=== PATIENT | male | born 1955 | race Caucasian/White ===

== ENCOUNTER 2020-06-21 07:02 | Day surgery (SDC) | payer OTHER ==
[~2020-06-21] VITALS: Ht 167.6 cm; Wt 81.8 kg
[~2020-06-21 07:02] MED LIST: AMLO5 PO; FENO48 PO; FISH OIL PO; LOVA40 PO; METO100ER PO; OLME20 PO
--- NOTE | 2020-06-21 08:34 | NUR ---
Ambulatory in Day Surgery History, Chart, Medications and Allergies reviewed before start of procedure.Patient confirms NPO status and agrees with scheduled surgery. Patient reports completing Chlorhexadine shower X2 prior to admission to hospital.Surgical site prepped with 2% Chlorhexidine cloth wipe. Lungs clear T/O to Auscultation. Patient States Post-Procedure ride home has been arranged.
--- NOTE | 2020-06-21 11:45 | NUR ---
Dressing to procedure site clean, dry, intact with no visible drainage, swelling, erythema or bruising noted.PT ALERT AND ORIENTED TAKING IN PO FLUIDS WELL PAIN IS NOW 6-7/10
--- NOTE | 2020-06-21 12:39 | NUR ---
Patient up to Ambulate independently. Gait steady. Discharge instructions reviewed with patient. Patient verbalizes understanding. Copy given to patient to take home. Dressing to procedure site clean, dry, intact with no visible drainage, swelling, erythema or bruising noted. Patient States Post-Procedure ride home has been arranged. Discharged via wheelchair to private car for ride home. PT GIVEN RX TO BE FILLED FOR PAIN
--- NOTE | 2020-06-21 13:46 | NUR ---
06/21/20 1346 Concepcion Bills VERIFICATIONS: EDIT CHART.
== END 2020-06-21 23:06 | disposition home or self-care (01) ==
LOC: ORSCMMR 07:02 → ORD 08:30 → ORSCMMR 23:06
PROVIDERS: Surgery
PROC: 0YU50JZ Supplement Right Inguinal Region with Synthetic Substitute, Open Approach (ICD-10-PCS; principal; 2020-06-21 09:30)
DX: K40.90 Unilateral inguinal hernia, without obstruction or gangrene, not specified as recurrent (principal); I10 Essential (primary) hypertension; E78.5 Hyperlipidemia, unspecified; K21.9 Gastro-esophageal reflux disease without esophagitis; Z79.899 Other long term (current) drug therapy
CPT/HCPCS: A9270-GY; C1781; J0330; J0690; J1100; J2250; J2370; J2405; J2704; J2710; J3010; J7120

== ENCOUNTER 2022-09-16 20:10 | Inpatient (IN) | payer MEDICARE, OTHER ==
[~2022-09-16] VITALS: Ht 167.6 cm; Wt 88.3 kg
[2022-09-16 20:45] LABS: BASOPHILS ABSOLUTE AUTO 0.04 K/mm3 (0.00-0.23); BASOPHILS PERCENT AUTO 0 % (0-2); EOSINOPHILS ABSOLUTE AUTO 0.02 K/mm3 (0.00-0.68); EOSINOPHILS PERCENT AUTO 0 % (0-6); Hematocrit 44.1 % (37.0-53.0); Hemoglobin 14.7 g/dL (13.5-17.5); IMMATURE GRAN ABSOLUTE AUTO 0.06 K/mm3 (0.00-0.10); IMMATURE GRAN PERCENT AUTO 0 % (0-1); LYMPHOCYTES ABSOLUTE AUTO 0.75 K/mm3 (0.84-5.20); LYMPHOCYTES PERCENT AUTO 5 % (21-46); MONOCYTES ABSOLUTE AUTO 0.58 K/mm3 (0.16-1.47); MONOCYTES PERCENT AUTO 4 % (4-13); Mean Corpuscular HGB 30.4 pg (26.0-34.0); Mean Corpuscular HGB Conc 33.3 g/dL (31.5-36.5); Mean Corpuscular Volume 91 fL (80-100); Mean Platelet Volume 10.9 fL (9.1-12.4); NEUTROPHILS ABSOLUTE AUTO 13.07 K/mm3 (1.96-9.15); NEUTROPHILS PERCENT AUTO 90 % (41-73); Platelet Count 230 K/mm3 (150-400); RDW Coefficient Variation 14.2 % (11.7-14.2); RDW Standard Deviation 47.8 fL (35.1-46.3); Red Blood Cell Count 4.83 M/mm3 (4.30-5.90); White Blood Cell Count 14.52 K/mm3 (4.00-11.30)
[2022-09-16 21:02] LABS: Alanine Aminotransfer (ALT/SGP 35 U/L (12-78); Albumin, Blood 4.1 g/dL (3.4-5.0); Albumin/Globulin Ratio 1.1 (0.8-1.8); Alk Phos 25 U/L (50-136); Anion Gap 9 mmol/L (6-16); Aspartate Aminotrans (AST/SGOT 34 U/L (12-37); Bilirubin, Total 0.6 mg/dL (0.1-1.0); Blood Urea Nitrogen 19 mg/dL (8-24); Bun/Creatinine Ratio 11.2 (12.0-20.0); CO2, Blood 29 mmol/L (21-32); Calcium, Blood 9.7 mg/dL (8.5-10.1); Chloride, Blood 101 mmol/L (98-108); Creatinine, Blood 1.69 mg/dL (0.60-1.20); Globulin, Blood 3.7 g/dL (2.2-4.0); Glomerular Filtration Rate 44 (60-); Glucose, Blood 170 mg/dL (70-99); Potassium, Blood 3.8 mmol/L (3.5-5.5); Sodium, Blood 139 mmol/L (136-145); Total Protein, Blood 7.8 g/dL (6.4-8.2)
[2022-09-16 21:36] LABS: Influenza A, PCR NEGATIVE (NEGATIVE); Influenza B, PCR NEGATIVE (NEGATIVE); Resp Syncytial Virus, PCR NEGATIVE (NEGATIVE); SARS-Cov-2 (COVID-19) PCR, MMC NEGATIVE (NEGATIVE)
[2022-09-16 21:55] LABS: Source, Urine Clean Catch
[2022-09-16 22:02] LABS: Bilirubin, Urine Neg (Neg); Blood, Urine Neg (Neg); Glucose Qualitative, Urine Neg (Neg); Ketones, Urine Neg (Neg); Leukocyte Esterase, Urine Neg (Neg); Nitrite, Urine Neg (Neg); Protein, Urine 2+ (Neg); Urobilinogen, Urine NORM (Normal)
[2022-09-16 22:07] LABS: Appearance, Urine Clear (Clear); Color, Urine Yellow (P-Yellow)
[2022-09-16 22:14] LABS: Bacteria Rare /hpf; Red Blood Cells, Urine 0-2 /hpf (0-2); Squamous Epithelial Cells Not Seen /hpf (Few); White Blood Cells, Urine 0-2 /hpf (0-5)
[2022-09-17 01:19] LABS: CHOL/HDL RATIO 3.8; Cholesterol 154 mg/dL (50-200); HDL Cholesterol 40 mg/dL (>39); LDL/HDL RATIO 2.1; Low Density Lipoprotein Chol 84 mg/dL (0-110); Triglycerides 152 mg/dL (30-160); Very Low Density Lipoprot Chol 30 mg/dL (6-32)
[2022-09-17] MEDS ORDERED: LISI20 PO (01:58)
[2022-09-17] MEDS ORDERED: FENOFIBRIC ACI135 MG PO (01:59)
[2022-09-17 04:22] LABS: BASOPHILS ABSOLUTE AUTO 0.02 K/mm3 (0.00-0.23); BASOPHILS PERCENT AUTO 0 % (0-2); EOSINOPHILS PERCENT AUTO 0 % (0-6); Hematocrit 42.5 % (37.0-53.0); Hemoglobin 14.1 g/dL (13.5-17.5); IMMATURE GRAN ABSOLUTE AUTO 0.03 K/mm3 (0.00-0.10); IMMATURE GRAN PERCENT AUTO 0 % (0-1); LYMPHOCYTES ABSOLUTE AUTO 0.34 K/mm3 (0.84-5.20); LYMPHOCYTES PERCENT AUTO 4 % (21-46); MONOCYTES ABSOLUTE AUTO 0.34 K/mm3 (0.16-1.47); MONOCYTES PERCENT AUTO 4 % (4-13); Mean Corpuscular HGB 30.3 pg (26.0-34.0); Mean Corpuscular HGB Conc 33.2 g/dL (31.5-36.5); Mean Corpuscular Volume 91 fL (80-100); Mean Platelet Volume 10.5 fL (9.1-12.4); NEUTROPHILS PERCENT AUTO 92 % (41-73); Platelet Count 176 K/mm3 (150-400); RDW Coefficient Variation 14.4 % (11.7-14.2); RDW Standard Deviation 48.2 fL (35.1-46.3); Red Blood Cell Count 4.66 M/mm3 (4.30-5.90); White Blood Cell Count 9.43 K/mm3 (4.00-11.30)
[2022-09-17 04:39] LABS: Bun/Creatinine Ratio 14.3 (12.0-20.0); Calcium, Blood 8.2 mg/dL (8.5-10.1); Creatinine, Blood 1.33 mg/dL (0.60-1.20); Potassium, Blood 3.9 mmol/L (3.5-5.5)
--- NOTE | 2022-09-17 06:05 | NUR ---
SHIFT SUMMARY ASSUMED CARE OF PT AT 0145. HEART SOUNDS REGULAR. LUNG SOUNDS DIMINISHED AT BASES. PT BAD IS FIRM AND TENDER. PT NEEDED PAIN MEDCATION FREQUENTLY. PT NPO. PT REMAINED IN BED AND SLEPT MOST OF THE SHIFT. PT REPORTED TO THIS NURSE THAT HIS LAST DRINK WAS 09/16/22 @ 1330. PT CIWA NEGATIVE T/O THE SHIFT BUT PT STATES HE HAS GONE THROUGH WITHDRAWL BEFORE. PT VERBALIZED UNDERSTANDING QUITING DRINKING.
--- NOTE | 2022-09-17 07:30 | NUR ---
INITIAL ASSESSMENT: Patient is awake lying down in bed. He is alert and oriented x4. He reports 8/10 abd pain at this time, pt is medicated with 50 mcg Fentanyl. HRR, SR in the 80s. LS CTA, Biox 95% on RA. BT hypoactive, pt reports some mild nausea this AM. PPP. Pt reports,"things have been going down hill since my 4 years ago." Pt states he also lost his son in january of this year. He states he is ready to stop drinking. Patient denies other needs at this time. Call light in reach.
--- NOTE | 2022-09-17 11:49 | NUR ---
Update: Patient is resting comfortably in bed. He continues to be alert and oriented. CIWA continues to be negative. He C/O 8/10 abdominal pain, medicated with 25 mcg Fentanyl. Pt was given 2 [place] earlier, he complains they upset his stomach. VSS. He denies other needs at this time. Call light in reach.
--- NOTE | 2022-09-17 15:49 | NUR ---
Update: Report given to Noe AVINA. Patient is resting comfortably. Call light in reach.
--- NOTE | 2022-09-17 16:00 | NUR ---
ASSUMPTION OF CARE HAND OFF REPORT RECEIVED FROM ANILA ORONA RN. PT WAS AWAKE AND ALERT, SITTING IN BED AT TIME OF HANDOFF. PT STATED THAT PAIN WAS MODERATELY CONTROLLED AT THAT TIME. PT DENIED ANY NEEDS AT THE TIME.
--- NOTE | 2022-09-17 17:15 | NUR ---
SHIFT SUMMARY PT HAS BEEN RESTING QUIETLY IN ROOM. PT HAS CONTINUED TO C/O 7/10 ABDOMINAL PAIN THAT IS MANAGED MODERATELY WELL WITH MEDICATIONS. PT DENIED NAUSEA SINCE THIS RN ASSUMED CARE. VITAL SIGNS STABLE, NO ACUTE CHANGE IN CONDITION.
--- NOTE | 2022-09-18 06:03 | NUR ---
SHIFT SUMMARY ASSUMED CARE OF PT AT 1900. PT IS A/OX4. HEART SOUNDS REGULAR, LUNG SOUNDS CLEAR. PT CIWA WAS NEGATIVE. PT REQUESTED PAIN MEDICATION OFTEN. PT C/O ABD PAIN THAT RADIATED TO BACK AND CHEST AT TIMES. PT C/O NOT BEING ABLE TO SLEEP AND FEELING ANXIOUS ABOUT THE PAIN. ABD IS FIRM AND TENDER TO TOUCH. BOWEL TONES HYPOACTIVE. PT IS INDEPENDENT IN THE ROOM AND HAS BEEN USING NONPHARMICOLOGICAL METHODS TO PAIN MANAGEMENT SUCH WALKING FROM RECLINER TO BED AND HEAT.
[2022-09-18 06:12] LABS: Albumin/Globulin Ratio 0.9 (0.8-1.8); Bun/Creatinine Ratio 13.5 (12.0-20.0); Calcium, Blood 7.9 mg/dL (8.5-10.1); Creatinine, Blood 1.26 mg/dL (0.60-1.20); Globulin, Blood 3.2 g/dL (2.2-4.0); Magnesium, Blood 1.4 mg/dL (1.6-2.4); Potassium, Blood 3.7 mmol/L (3.5-5.5); Total Protein, Blood 6.2 g/dL (6.4-8.2)
--- NOTE | 2022-09-18 19:01 | NUR ---
PT ARRIVED TO ICU AT 1750 CONFUSED AND MUMBLING. STATUS CHANGE TO ICU DUE TO NEEDING PRECEDEX DRIP. FRIEND AT BEDSIDE DURING TRANSFER. CIWA 26, STARTED PRECEDEX DRIP AND TITRATED TO 0.4. 4MG ATIVAN GIVEN. PT HAS HAD CONSTANT HICCUPS THROUGHOUT THE DAY. STOPEED AFTER PRECEDEX AND ATIVAN GIVEN. FAMILY HOME FOR THE NIGHT. PT'S NOK IS SON JONATHON, ALTERNATE IS GRANDDAUGHTER AGATHA. FRIEND ABBY SHORT CONTACT IS ON FACESHEET, SHE LIVES 5 MIN AWAY AND WILL COME TO BEDISIDE IF NEEDED. DISCUSSED POC WITH DR. CHACON. TELEPHONE ORDERS RECIEVED AND ENTERED.
--- NOTE | 2022-09-18 19:43 | NUR ---
1640- SPOKE W/ DR. CHACON AT BEDSIDE ABOUT CONCERNS WITH MENTATION AND WITHDRAWAL SYMPTOMS COMBINED WITH HICCUPS AND INCREASING ABDOMINAL PRESSURE. ORDERS FOR TRANSFER TO ICU FOR PRECEDEX GTT RECEIVED WELL NG TUBE AND CLOSER MONITORING. REPORT GIVEN TO FABRICE MCLAUGHLIN AND PT TRANSFERED TO ICU02
--- NOTE | 2022-09-18 19:52 | NUR ---
Author spoke to Dr. Boykin re: patient fever. 650mg Tylenol suppository ordered. Per , ok to hold off on NG insertion for now.
[2022-09-19 01:26] LABS: Source, Urine Foley catheter
[2022-09-19 01:57] LABS: Bilirubin, Urine Neg (Neg); Blood, Urine Neg (Neg); Glucose Qualitative, Urine Neg (Neg); Ketones, Urine Neg (Neg); Leukocyte Esterase, Urine Neg (Neg); Nitrite, Urine Neg (Neg); Protein, Urine 1+ (Neg); Urobilinogen, Urine NORM (Normal)
--- NOTE | 2022-09-19 02:04 | NUR ---
Shortly after 0000 assessment, author called RT to room for opinion on whether coarse wheezing coming from upper airway or lower. RT advises coarse crackles throughout and pt sounds wet. Maintenence fluids stopped. MD notified and orders given for cxr, bladder scan, casillas insertion with Zyprexa (if needed), 40mg Lasix. Bladder scan shows 741mL, urine output >700mL post-insertion and continuing to drain. Zyprexa not needed. Patient agreeable with catheter. He is beginning to get restless and wanting to "get up" even after several explanations of risk for falls with current medications. Able to get patient to rest more comfortably by increasing Precedex rate.
[2022-09-19 02:06] LABS: Appearance, Urine Clear (Clear); Color, Urine Yellow (P-Yellow)
[2022-09-19 04:02] LABS: BASOPHILS ABSOLUTE AUTO 0.03 K/mm3 (0.00-0.23); BASOPHILS PERCENT AUTO 0 % (0-2); EOSINOPHILS ABSOLUTE AUTO 0.43 K/mm3 (0.00-0.68); EOSINOPHILS PERCENT AUTO 3 % (0-6); Hematocrit 39.9 % (37.0-53.0); Hemoglobin 13.2 g/dL (13.5-17.5); IMMATURE GRAN ABSOLUTE AUTO 0.04 K/mm3 (0.00-0.10); IMMATURE GRAN PERCENT AUTO 0 % (0-1); LYMPHOCYTES ABSOLUTE AUTO 0.81 K/mm3 (0.84-5.20); LYMPHOCYTES PERCENT AUTO 6 % (21-46); MONOCYTES ABSOLUTE AUTO 0.72 K/mm3 (0.16-1.47); MONOCYTES PERCENT AUTO 6 % (4-13); Mean Corpuscular HGB 30.2 pg (26.0-34.0); Mean Corpuscular HGB Conc 33.1 g/dL (31.5-36.5); Mean Corpuscular Volume 91 fL (80-100); NEUTROPHILS ABSOLUTE AUTO 10.86 K/mm3 (1.96-9.15); NEUTROPHILS PERCENT AUTO 84 % (41-73); Platelet Count 149 K/mm3 (150-400); RDW Coefficient Variation 14.4 % (11.7-14.2); RDW Standard Deviation 48.8 fL (35.1-46.3); Red Blood Cell Count 4.37 M/mm3 (4.30-5.90); White Blood Cell Count 12.89 K/mm3 (4.00-11.30)
[2022-09-19 04:46] LABS: Albumin, Blood 2.7 g/dL (3.4-5.0); Albumin/Globulin Ratio 0.7 (0.8-1.8); Bilirubin, Total 1.1 mg/dL (0.1-1.0); Bun/Creatinine Ratio 12.5 (12.0-20.0); Calcium, Blood 8.5 mg/dL (8.5-10.1); Creatinine, Blood 1.12 mg/dL (0.60-1.20); Globulin, Blood 3.7 g/dL (2.2-4.0); Potassium, Blood 3.7 mmol/L (3.5-5.5); Total Protein, Blood 6.4 g/dL (6.4-8.2)
--- NOTE | 2022-09-19 07:03 | NUR ---
SHIFT SUMMARY: GENERAL: Patient remains in bed and in ICU for entire shift; lightly sedated on Precedex. Please see previous notes by this author for interval events. NEURO: confused, oriented to self and knows he's in the hospital. Opens eyes spontaneously and will wake briefly to stimuli. Highest CIWA was 18; generally patient has been calm and cooperative, reiterating his desire to leave or asking when he can "get out of here". He does endorse anxiety. CARDS: SR, occasional soft BPs which resolve after re-checks. No edema appreciated. RESP: *please see note* patient on 2L NC to keep sats >90%. Assumed episode of volume overload overnight; diuresed well. Breathing much better. LS coarse crackles with upper wheeze heard during overload event. LS now clear/crackles/diminished. MSK: no issues noted. Has ROM but diminished d/t sedation. INTEG: WDL GI/: Carrillo inserted with good output. Catheter patent and draining to gravity. Attempted BM x1 on bedpan; unsuccessful. He is passing gas. Mucous membranes dry.
--- NOTE | 2022-09-19 07:15 | NUR ---
ASSUMED CARE OF PT AT 0715 BEDSIDE REPORT RECIEVED FROM FABRICE FELIX. PT APPEARS TO BE RESTING COMFORTABLY ON PRECEDEX DRIP AT 0.7 INFUSING INTO RIGHT PIV. IVF STOPPED DURING THE NIGHT DUE TO SUSPECTED VOLUME OVERLOAD WITH CRACKLES IN BILAT LUNGS, LASIX REPORTEDLY GIVEN WITH GOOD EFFECT. NG IN PLACE DRAINING CLEAR YELLOW URINE. NO FAMILY AT BEDSIDE. PLAN IS TO CONTINUE PRECEDEX DRIP AND ATIVAN PRN FOR ELEVATED CIWA SCORES. RN TO CONTINUE TO MONITOR.
--- NOTE | 2022-09-19 14:56 | NUR ---
Pt transferred from PCU to ICU for precedex drip, and he appears comfortable today. Code status updated from DNR to limited, which is appropriate given pt's current situation. Plan to continue with supportive visits as needed.
--- NOTE | 2022-09-19 16:16 | NUR ---
CIWA 18 PT MORE ANXIOUS AND AWAKE AFTER BED BATH. IS ORIENTED TO PERSON AND YEAR. ABLE TO RECALL HE IS IN THE HOSPITAL AFTER BEING TOLD. STATES HE WANTS TO GO HOME AND THAT HE IS EBARASSED. REACHING FOR OBJECTS THAT ARE NOT THERE. TREMORS AND MILD DIAPHORESIS NOTED. PRECEDEX DRIP CONTINUED. 2MG ATIVAN PRN GIVEN WITH GOOD RESULT. PT SLEEPING. RN TO CONTINUE TO MONITOR.
--- NOTE | 2022-09-19 18:44 | NUR ---
SHIFT SUMMARY NEURO: INTERMITTENTLY CONFUSED. ORIENTED X PERSON ONLY AT TIMES, WHEN MORE AWAKE, ORIENTED X PERSON, PLACE AND YEAR. CIWA RANGES FROM 8-18. MEDICATED WITH ATIVAN 2MG IV X2 THIS SHIFT. PRECEDEX REMAINS AT 0.7. CARDIAC: SR, BP WNL. RESP: EXP WHEEZE INTERMITTENT, WORSE WITH ACTIVITY. O2 SAT >92% ON 2L NC. GI: NPO DUE TO SOMNOLENCE, NO NEED FOR NGT AT THIS TIME PER MD. : NG LISSETTE CLEAR 550ML OUT. SKIN: INTACT. BED BATH AND LINEN CHANGE DONE. PT TOLERATED WELL. IV: PIV LFA, POWERGLIDE LUIS CARLOS PLACED TODAY. BOTH FLUSH WELL. ABBY SALINASROSS (FRIEND) HAS BEEN UPDATED THROUGHOUT SHIFT, SHE IS UPDATING FAMILY. GOAL IS FOR PT TO REST OVER THE NEXT 1-2 DAYS DURING ACUTE WITHDRAWL WHILE ON PRECEDEX DRIP PER MD.
--- NOTE | 2022-09-19 20:53 | NUR ---
Recieved report from Nina AVINA. Pt resting in bed currently with Precedex drip infusing.
[2022-09-20 04:57] LABS: Albumin, Blood 2.3 g/dL (3.4-5.0); Albumin/Globulin Ratio 0.6 (0.8-1.8); Bun/Creatinine Ratio 17.3 (12.0-20.0); Calcium, Blood 8.1 mg/dL (8.5-10.1); Creatinine, Blood 1.1 mg/dL (0.60-1.20); Globulin, Blood 4.1 g/dL (2.2-4.0); Phosphorus, Blood 2.3 mg/dL (2.5-4.9); Potassium, Blood 3.7 mmol/L (3.5-5.5); Total Protein, Blood 6.4 g/dL (6.4-8.2)
--- NOTE | 2022-09-20 05:29 | NUR ---
Shift summary: NEURO: Pt intermittently confused. Oriented to self and occasionally place. CIWA scores ranging from 14-20s and ativan given as needed. Precedex drip still remains at 0.7mcg. CARDIAC: SR with HR 60-90s, BP WNL. RESP: Exp. wheeze on exertion. Lasix given once d/t crackles in bases. Remains on 2L NC with O2 sats maintaining >95% GI: NPO. No BM overnight. : Carrillo draining moisés colored urine. After lasix given this AM pt urinated 725ml. Other: Pt had removed RFA IV and I was unsuccessful in starting a new one. NADER powerglide still infusing and working.
--- NOTE | 2022-09-20 07:37 | NUR ---
Assumed care at 0715 Bedside report recieved, pt has been increasingly restless despite PRN Ativan and Precedex drip. Pt pulled R PIV, Powerglide to LUIS CARLOS intact and infusing. Pt oriented to person only. Moaning and restless, repositioning himself constantly and admits to discomfort. Per family, pt has a history of chronic back pain. Medicated with Morphine 2mg IV with good relief. RN to continue to monitor.
--- NOTE | 2022-09-20 17:35 | NUR ---
SHIFT SUMMARY PT HAS BEEN MEDICATED FOR PAIN X2 AND CIWA X1. PRECEDEX DRIP CONTINUES AT 0.7. MENTATION VASCILLATES BETWEEN ALERT AND ORIENTED X4 TO MUMBLED AND CONFUSED. CIWA ASSESSED PRN. SECOND POWERGLIDE PLACED TODAY, FLUSHING WELL. TEMP INCREASING, BD PROTOCOL ORDERED, PT IS RECEIVING NEBS Q4H WA. PULM HYGEINE ENCOURAGED INCLUDING COUGH, DEEP BREATHING AND FLUTTER VALVE. ICE PACKS PLACED AND PO TYLENOL ORDER RECIEVED FROM DR. CHACON. DIET ADVANCED TO CLEAR LIQUID, PT TOLERATES WATER WELL WHEN WIDE AWAKE. HOLD PO FOR SOMNOLENCE. FAMILY UPDATED BY ABBY (FRIEND) THAT HAS BEEN AT THE BEDSIDE.
--- NOTE | 2022-09-20 19:06 | NUR ---
Receieved report from Nina AVINA. Pt currently sleeping in bed with Precedex drip still infusing at 0.7mcg and TKO. Current temperature is 100.4 and continues to decrease. Will try to avoid lasix tonight and will check lipase level in AM. He is currently on RA with O2 sats >90%. Bed alarm on
[2022-09-21 05:23] LABS: BASOPHILS ABSOLUTE AUTO 0.04 K/mm3 (0.00-0.23); BASOPHILS PERCENT AUTO 0 % (0-2); EOSINOPHILS PERCENT AUTO 3 % (0-6); Hematocrit 36.3 % (37.0-53.0); Hemoglobin 12.2 g/dL (13.5-17.5); IMMATURE GRAN ABSOLUTE AUTO 0.11 K/mm3 (0.00-0.10); IMMATURE GRAN PERCENT AUTO 1 % (0-1); LYMPHOCYTES ABSOLUTE AUTO 0.72 K/mm3 (0.84-5.20); LYMPHOCYTES PERCENT AUTO 6 % (21-46); MONOCYTES ABSOLUTE AUTO 1.15 K/mm3 (0.16-1.47); MONOCYTES PERCENT AUTO 10 % (4-13); Mean Corpuscular HGB 29.8 pg (26.0-34.0); Mean Corpuscular HGB Conc 33.6 g/dL (31.5-36.5); Mean Corpuscular Volume 89 fL (80-100); Mean Platelet Volume 10.3 fL (9.1-12.4); NEUTROPHILS ABSOLUTE AUTO 9.35 K/mm3 (1.96-9.15); NEUTROPHILS PERCENT AUTO 80 % (41-73); Platelet Count 205 K/mm3 (150-400); RDW Standard Deviation 45.5 fL (35.1-46.3); Red Blood Cell Count 4.09 M/mm3 (4.30-5.90); White Blood Cell Count 11.77 K/mm3 (4.00-11.30)
--- NOTE | 2022-09-21 05:43 | NUR ---
Shift summary: NEURO: Pt intermittently confused. Oriented to self and occasionally place. CIWA scores ranging from 5-8. PRN morphine given for 8/10 back pain. Starting to decrease Precedex drip, currently at 0.6mcg. CARDIAC: SR with HR 60-90s, BP WNL. RESP: Exp. wheeze on exertion, otherwise clear/diminished. PT remains on RA GI: Pt able to have clear liquids now, had a cup of water. No BM overnight. : Carrillo draining moisés colored urine. Other: NADER and LUIS CARLOS powerglides still intact and infusing. Updated Delia this morning on patients night.
[2022-09-21 06:05] LABS: Magnesium, Blood 2.2 mg/dL (1.6-2.4)
[2022-09-21 06:16] LABS: Albumin/Globulin Ratio 0.5 (0.8-1.8); Bilirubin, Total 1.1 mg/dL (0.1-1.0); Bun/Creatinine Ratio 17.5 (12.0-20.0); Calcium, Blood 8.4 mg/dL (8.5-10.1); Creatinine, Blood 0.91 mg/dL (0.60-1.20); Globulin, Blood 4.2 g/dL (2.2-4.0); Phosphorus, Blood 2.9 mg/dL (2.5-4.9); Potassium, Blood 3.5 mmol/L (3.5-5.5); Total Protein, Blood 6.2 g/dL (6.4-8.2)
--- NOTE | 2022-09-21 07:37 | NUR ---
Assumed care at 0705 Pt resting comfortably on Precedex at 0.5. No ativan given on previous shift. Pt confused at times but mentation overall clearing. Bilat powerglide, both infusing well. Tolerating PO's well when awake. Family updated by NOC nurse via phone this am. No family currently at bedside. RN to continue to monitor.
--- NOTE | 2022-09-21 18:43 | NUR ---
END OF SHIFT SUMMARY NEURO: CONFUSED AT TIMES. CIWA 12-26. TITRATED PRECEDEX TO MAX, PRN ATIVAN AND MORPHINE GIVEN. CARDIAC: SINUS RHYTHM WITH 1ST DEGREE AV BLOCK. BP STABLE. NO EDEMA NOTED. RESP: EXP WHEEZING WITH EXERTION. RESOLVES WHEN RESTING. ON ROOM AIR WITH OXYGEN SATURATIONS > 96%. HAS BREATHING TREATMENTS ORDERED PRN. GI: CLEAR LIQUID DIET. DRANK 100% ENSURE FOR DINNER. BS NORMOACTIVE. PASSING FLATUS, NO BM THIS SHIFT. ABDOMEN LESS FIRM. : NG, UO LISSETTE AND CLEAR. 450ML OUT. SKIN: FACE RED AND FLUSHED, SKIN INTACT. TURN/ASSIST WITH REPOSITIONING EVERY 2 HOURS FOR COMFORT AND TO MAINTAIN SKIN INTEGRITY. IV: RIGHT UPPPER ARM POWEGLIDE INFUSING NS TKO AND IVPB. LEFT UPPER ARM POWERGLIDE INFUSING PRECEDEX. POTASSIUM REPLACED THIS AM, LIPASE 118, DOWN SIGNIFICANTLY FROM ADMIT. DR. CHACON WOULD LIKE TO BEGIN WEANING PT OFF PRECEDEX SATURDAY 09/22 AFTER A FULL 72 HOURS FROM WITHDRAWL SYMPTOMS STARTING. ABBY (FRIEND/CONTACT) AT BEDSIDE TO VISIT THIS SHIFT. SHE IS KEEPING FAMILY UPDATED ON PT CONDITION AND POC.
--- NOTE | 2022-09-21 20:11 | NUR ---
ASSUMED CARE OF PT AT 1900, BEDSIDE REPORT RECEIVED. PT HAS BEEN INTERMITTENTLY RESTLESS SINCE REPORT, ADMITS TO NAUSEA, ADMITS TO ANXIETY, CAN INTERMITTENTLY STATE THAT HE IS IN THE HOSPITAL HOWEVER CANNOT PROVIDE DATE OF THIS TIME. LAST CIWA ASSESSMENT, HE WAS UNABLE TO STATE THAT HE WAS IN THE HOSPITAL AND ACTUALLY ANSWERED THAT HE DOESN'T KNOW WHERE HE IS,R REORIENTATION PROVIDED WELL MEDS PER ORDERS FOR CIWA SCORE, SEE EMAR. HRR, SINUS IN THE 80-90S, 1ST DEGREE AV BLOCK, SOFT PRESSURE NOTED NEAR SHIFT CHANGE HAVE IMPROVED OF THIS TIME, WILL MONITOR. LUNGS WITH FAINT EXPIRATORY WHEEZE TO LEFT UPPER LOBE OTHERWISE CLEAR THROUGHOUT AND PT DENIES SOB/DYSPNEA, SATS HAVE BEEN MAINTAINING ON ROOM AIR. ABD DISTENDED AND FIRM, PT DENIES PAIN WITH LIGHT PALPATION AND NAUSEA IMPROVES POST ATIVAN ADMINISTRATION. WILL MONITOR.
[2022-09-22 03:48] LABS: BASOPHILS ABSOLUTE AUTO 0.05 K/mm3 (0.00-0.23); BASOPHILS PERCENT AUTO 0 % (0-2); EOSINOPHILS ABSOLUTE AUTO 0.33 K/mm3 (0.00-0.68); EOSINOPHILS PERCENT AUTO 3 % (0-6); Hematocrit 33.9 % (37.0-53.0); Hemoglobin 11.5 g/dL (13.5-17.5); IMMATURE GRAN ABSOLUTE AUTO 0.32 K/mm3 (0.00-0.10); IMMATURE GRAN PERCENT AUTO 3 % (0-1); LYMPHOCYTES ABSOLUTE AUTO 0.77 K/mm3 (0.84-5.20); LYMPHOCYTES PERCENT AUTO 7 % (21-46); MONOCYTES ABSOLUTE AUTO 1.28 K/mm3 (0.16-1.47); MONOCYTES PERCENT AUTO 11 % (4-13); Mean Corpuscular HGB 29.9 pg (26.0-34.0); Mean Corpuscular HGB Conc 33.9 g/dL (31.5-36.5); Mean Corpuscular Volume 88 fL (80-100); Mean Platelet Volume 9.7 fL (9.1-12.4); NEUTROPHILS ABSOLUTE AUTO 9.07 K/mm3 (1.96-9.15); NEUTROPHILS PERCENT AUTO 77 % (41-73); Platelet Count 244 K/mm3 (150-400); RDW Coefficient Variation 14.1 % (11.7-14.2); RDW Standard Deviation 45.6 fL (35.1-46.3); Red Blood Cell Count 3.85 M/mm3 (4.30-5.90); White Blood Cell Count 11.82 K/mm3 (4.00-11.30)
[2022-09-22 04:21] LABS: Albumin, Blood 2.2 g/dL (3.4-5.0); Albumin/Globulin Ratio 0.5 (0.8-1.8); Bilirubin, Total 1.5 mg/dL (0.1-1.0); Bun/Creatinine Ratio 17.7 (12.0-20.0); Calcium, Blood 8.5 mg/dL (8.5-10.1); Creatinine, Blood 0.96 mg/dL (0.60-1.20); Globulin, Blood 4.1 g/dL (2.2-4.0); Magnesium, Blood 2.2 mg/dL (1.6-2.4); Potassium, Blood 3.7 mmol/L (3.5-5.5); Total Protein, Blood 6.3 g/dL (6.4-8.2)
--- NOTE | 2022-09-22 04:59 | NUR ---
PT FREQUENTLY RESTLESS THROUGHOUT NOC. HAS BEEN UNABLE TO STATE DATE OR EXACT LOCATION THROUGHOUT THE DURATION OF THIS SHIFT, WAS ABLE TO STATE THAT HE WAS IN A HOSPITAL EARLY IN THE NOC HOWEVER THIS AM HE MAKES STATEMENTS SUCH "I NEED TO GET OUT OF HERE, YOU GUYS ARE FREAKING ME OUT" AND "CALL THE LEAD MATERIAL HANDLER." HE HAS DENIED HALLUCINATIONS THROUGHOUT NOC. PRECEDEX CONTINUES AT 0.7 MCG/KG/HR AND PRN DOSES OF ATIVAN HAVE BEEN ADMIN THROUGHOUT NOC, SEE EMAR. TYLENOL WAS ADMINISTERED FOR INCREASED TEMP, T-MAX 101.4 THIS SHIFT, HAS DECREASED TO 100.0 OF THIS TIME. HE CONTINUES IN SINUS RHYTHM, RATE 70S WITH SLEEP AND UP TO HIGH 90S WHEN AWAKE AND RESTLESS. PRESSURES MAINTAINING STABLE THROUGHOUT NOC, CONTINUES WITHOUT EDEMA. LUNGS WITH INTERMITTENT WHEEZES, SATS MAINTAIN MID 90S WHEN AWAKE HOWEVER NOTED TO DECREASE TO UPPER 80S WITH SLEEP AND OXYGEN VIA NASAL CANNULA WAS APPLIED AT 1 L/MIN, SATS THEN IMPROVED TO MID TO UPPER 90S WITH SLEEP, RESP RATE 20S, PT HAS DENIED DYSPNEA THROUGHOUT NOC. ABD REMAINS DISTENDED WITH HYPOACTIVE BOWEL TONES, PT DOES INTERMITTENTLY ADMIT TO SLIGHT NAUSEA AND RATES IMPROVED FOLLOWING ATIVAN ADMINISTRATIONS. TEMP PROBE NG REMAINS IN PLACE 550 ML OF CLEAR DARK YELLOW URINE EMPTIED FROM COLLECTION BAG THIS AM. WILL CONT TO MONITOR AND REPORT CHANGES TO ONCOMING SHIFT.
[2022-09-22 09:33] LABS: Source, Urine Clean Catch
[2022-09-22 09:37] LABS: Bilirubin, Urine Neg (Neg); Blood, Urine 4+ (Neg); Glucose Qualitative, Urine Neg (Neg); Ketones, Urine 1+ (Neg); Leukocyte Esterase, Urine 1+ (Neg); Nitrite, Urine Neg (Neg); Protein, Urine 2+ (Neg); Urobilinogen, Urine 3+ (Normal); pH, Urine 6.5 (5.0-8.0)
[2022-09-22 09:45] LABS: Appearance, Urine Hazy (Clear)
[2022-09-22 09:46] LABS: Bacteria Few /hpf
[2022-09-22 09:47] LABS: Color, Urine Amber (P-Yellow); Squamous Epithelial Cells Rare /hpf (Few); Transitional Epithelial Cells Rare /hpf (0-Rare)
--- NOTE | 2022-09-22 16:24 | NUR ---
Family notified of CT results. No changes to care plan at this time.
--- NOTE | 2022-09-22 17:25 | NUR ---
SHIFT SUMMARY: PT LETHARGIC, SLEEPS MOST OF SHIFT, RESPONDS TO VERBAL STIMULI, ORIENTED TO SELF, LOCATION, SITUATION, DIFFICULT TO UNDERSTAND DUE TO MUMBLED WORDS. CIWA SCORED PER PROTOCOL, NO COVERAGE PROVIDED THUS FAR THIS SHIFT. PRECEDEX INFUSION TITRATED DOWN SLOWLY, CURRENT INFUSION RATE 0.2 MCG/KG/HR. AT THIS TIME, PT IS ALERT, ANSWERING QUESTIONS APPROPRIATELY, RESTING IN HIGH FOWLERS. PT MEDICATED PER EMAR FOR ELEVATED TEMP. O2 SATS 98% ON RA. SIN RHYTHM ON MONITOR W/RATE MOSTLY 70s-80s. ABDOMEN FIRM, DISTENDED. NEW ORDER FOR UA RECEIVED, INDWELLING TEMP NG REMOVED AND NEW ONE PLACED, THEN SAMPLE COLLECTED AND SENT TO LAB. NEW ORDERS RECEIVED FOR CT AND CHEST XRAY. PT ESCORTED TO/FROM IMAGING DEPT. UPON RETURN TO ROOM, NADER NOTED TO BE RED, SWOLLEN, FIRM TO TOUCH. PG REMOVED INTACT, SWELLING AND REDNESS IMPROVES T/OUT SHIFT. PT HAS BEEN REPOSITIONED Q2H, ORAL CARE PROVIDED Q4H, BEDBATH COMPLETED. WILL CONTINUE TO MONITOR AND TREAT ACCORDINGLY UNTIL CHANGE OF SHIFT. PT ASSISTED W/DINNER TRAY. ONE EPSIODE OF COUGHING/THROAT CLEARING NOTED, OTHERWISE TOLERATES WELL.
--- NOTE | 2022-09-22 18:25 | NUR ---
UPDATE: PT BECOMES TACHYCARDIC W/HR MOSTLY 120s, PEAKS AT 140 BPM. TEMPERATURE ELEVATED. PT REPORTS FEELING ANXIOUS. CIWA SCORED AND PT MEDICATED PER EMAR. PT ASSISTED TO/FROM BEDPAN W/SMALL DARK BROWN SMEAR. PT CLEANED AND REPOSITIONED IN BED TO LEFT SIDE. HR CONTINUES TACHYCARDIC, BUT NOW 110-115 BPM. PT ALSO MEDICATED FOR TEMPERATURE. WILL CONTINUE TO MONITOR.
--- NOTE | 2022-09-22 19:30 | NUR ---
ASSUMED CARE OF PT, BEDSIDE REPORT RECEIVED. PT IS RESTING QUIETLY RECLINING IN BED VISITING WITH FRIEND AT BEDSIDE. PT IS NOW ABLE TO STATE THAT HE IS IN [facility] [place] AND THAT THE DATE IS 10/09. HE ADMITS TO SLIGHT NAUSEA, DENIES BACK PAIN AT THIS TIME. STATES THAT HE IS FEELING COLD, TEMP NOTED ELEVATED, PER OFFGOING RN, TYLENOL ADMIN AT APPROXIMATELY 1800, WILL PLACE CALL TO HOSPITALIST FACTORY HAND FOR [facility] REGARDING INCREASED TEMP AND IMAGING/LABS ORDERED TODAY WELL CURRENT PRESENTATION. RESP RATE ELEVATED TO 30S, PT DOES ADMIT TO SLIGHT INCREASED WORK OF BREATHING, SENTENCE LENGTH IS NOTED 4-5 WORDS PER MINUTE WITH VISIBLE USE OF ABD MUSCLES WITH INHALATION. UDN IN PROGRESS AT ONSET OF ASSESSMENT. WILL MONITOR. HRR, SINUS TACH NOTED ON MONITOR, RATE 120S AT THIS TIME, WILL DISCUSS WITH MD, PRESSURES MAINTAINING, PULSES FULL X 4 EXTREMITIES, CAP REFILL BRISK. ABD DISTENDED, HYPOACTIVE BOWEL TONES NOTED, NO GRIMACING TO PALPATION, CONTINUES TO BE FIRM. TEMP PROBE NG IN PLACE, CHANGED TODAY PER OFFGOING RN, DRAINING CLEAR DARK YELLOW URINE TO GRAVITY AT THIS TIME. WILL MONITOR.
--- NOTE | 2022-09-22 20:50 | NUR ---
ELEVATED TEMP PT TEMP NOTED TO CONTINUE TO INCREASE, ICE PACKS PLACED TO BILAT AXILLA AND GROIN, BEDSIDE FAN TO HIGH POWER, WILL NOTIFY .
[2022-09-22 22:38] LABS: Adenovirus Not Detected (NOT DETECT); Bordetella pertussis Not Detected (NOT DETECT); Chlamydophila pneumoniae Not Detected (NOT DETECT); Coronavirus 229E Not Detected (NOT DETECT); Coronavirus HKU1 Not Detected (NOT DETECT); Coronavirus NL63 Not Detected (NOT DETECT); Coronavirus OC43 Not Detected (NOT DETECT); Human Metapneumovirus Not Detected (NOT DETECT); Human Rhinovirus/Enterovirus Not Detected (NOT DETECT); Influenza A/2009-H1 Not Detected (NOT DETECT); Influenza A/H1 Not Detected (NOT DETECT); Influenza A/H3 Not Detected (NOT DETECT); Influenza B Not Detected (NOT DETECT); Mycoplasma pneumoniae Not Detected (NOT DETECT); Parainfluenza Virus 1 Not Detected (NOT DETECT); Parainfluenza Virus 2 Not Detected (NOT DETECT); Parainfluenza Virus 3 Not Detected (NOT DETECT); Parainfluenza Virus 4 Not Detected (NOT DETECT); Respiratory Syncytial Virus Not Detected (NOT DETECT); SARS-Cov-2 (COVID-19), BioFire Not Detected (NOT DETECT)
--- NOTE | 2022-09-22 23:27 | NUR ---
PROCALCITONIN AND RESPIRATORY PANEL RESULTS PHONED TO DR LYON, HOSPITALIST EXPERIMENTAL ROCKETSLED MECHANIC, DISCUSSED PT'S CONTINUED FEVER WELL LAST AND NEXT DOSE OF PRN TYLENOL AVAILABLE. SEE NEW ORDERS.
--- NOTE | 2022-09-23 05:13 | NUR ---
PT HAS BEEN MORE ORIENTED AND VERBAL THROUGHOUT THIS SHIFT, HE DID HAVE A FEW INTERMITTENT EPISODES OF INQUIRING TO WHERE THIS BOAT IS AND THINKING THAT HE WAS IN [place] HOWEVER THROUGHOUT THE REST OF THE NOC HE HAS BEEN ABLE TO STATE THAT HE IS IN [facility] IN [place] HOWEVER DOES NOT RETAIN THE REASON FOR ADMISSION OR EVENTS OF THIS HOSPITALIZATION. DATES PROVIDED AT ASSESSMENTS WERE 10/09 AT , AT MIDNO, AND 10/09 AT 0400. HE WAS FEBRILE WITH A TMAX OF 103.7, CALLS WERE PLACED TO HOSPITALIST AIRPLANE PATROLLER REGARDING INCREASED TEMP WELL SEPSIS SCREENING RESULTS AT , ROCEPHIN IV WAS ORDERED, LACTIC ACID WAS CHECKED AND WNL, AND TORADOL IV ONCE WAS ORDERED. PT'S FEVER DECREASED WELL FOLLOWING TORADOL ADMINISTRATION AND TYLENOL WAS ADMIN AT NEXT AVAILABLE TIME OF [facility], OF THIS TIME, PT'S TEMP IS 98.0 AND HE STATES THAT HE FEELS MUCH BETTER. CONTINUES IN SINUS RHYTHM, WAS UP TO 120S AT BEGINNING OF SHIFT, THIS HAS IMPROVED WITH TEMP CONTROL DOWN TO 60S OF THIS TIME. PRESSURES HAVE MAINTAINED STABLE THROUGHOUT NOC AND PULSES REMAIN FULL TO ALL EXTREMITIES. LUNGS WITH INTERMITTENT EXPIRATORY WHEEZES, BASES REMAIN DIMINISHED THROUGHOUT NOC, SATS MAINTAINED ON ROOM AIR, RATE HAS IMPROVED WITH TEMP CONTROL FROM 30S TO NOW IN THE UPPER TEENS. ABD REMAINS DISTENDED WITH HYPOACTIVE BOWEL TONES, FIRM TO PALPATION, PT DENIES ABD PAIN THROUGHOUT NOC BUT DOES ADMIT TO SLIGHT NAUSEA. TEMP PROBE NG REMAINS IN PLACE DRAINING CLEAR DARK LISSETTE URINE TO GRAVITY OF THIS AM, PO INTAKE VS URINE OUTPUT WAS DISCUSSED WITH DR TSAI THIS AM AND ORDER OBTAINED FOR NS AT 75 ML/HR X 1.5 LITERS. HE DOES CONTINUE TO TURN HIMSELF FULLY AND WELL AND HAS EVEN SELF PRONED INTERMITTENTLY. HE IS A HIGH FALL RISK AND BED ALARM IS ARMED. CALL LIGHT REMAINS IN REACH, WILL CONT TO MONITOR AND REPORT TO NEXT SHIFT.
--- NOTE | 2022-09-23 07:15 | NUR ---
PT IS AWAKE AND ALERT-ORIENTED TO SELF AND SURROUNDINGS. PT COOPERATIVE WITH CARE. PRECEDEX DRIP REMAINS OFF. PT DENIES ANXIETY AT THIS TIME. PT REPORTS 6/10 BILATERAL SHOULDER AND LOW BACK PAIN. ECG SHOWS SR WITH 1ST DEGREE AV BLOCK. SBP 130'S. DP/PT PULSES 2+. LUNGS DIMINISHED IN THE BASES. MILD EXERTIONAL DYSPNEA NOTED, BUT MAINTAINS SATS >90% ON RA. NO NOTED COUGH. ABDOMEN DISTENDED AND FIRM WITH HYPOACTIVE BT'S X 4. PT DENIES ABDOMINAL PAIN AT THIS TIME. PT TOLERATING SIPS OF WATER WITHOUT DIFFICULTY. NG TO BSD WITH SMALL AMOUNT OF DARK, LISSETTE URINE TO UROMETER. SKIN C/D/I. PLAN TO KEEP PRECEDEX OFF IF PT TOLERATES-INCREASE PO INTAKE AND MOBILIZE TOLERATED.
[2022-09-23 08:21] LABS: Hematocrit 35.1 % (37.0-53.0); Hemoglobin 11.3 g/dL (13.5-17.5); Mean Corpuscular HGB 29.7 pg (26.0-34.0); Mean Corpuscular HGB Conc 32.2 g/dL (31.5-36.5); Mean Corpuscular Volume 92 fL (80-100); Mean Platelet Volume 9.9 fL (9.1-12.4); Platelet Count 257 K/mm3 (150-400); RDW Coefficient Variation 14.6 % (11.7-14.2); RDW Standard Deviation 49.8 fL (35.1-46.3); Red Blood Cell Count 3.81 M/mm3 (4.30-5.90); White Blood Cell Count 11.18 K/mm3 (4.00-11.30)
[2022-09-23 08:25] LABS: Albumin, Blood 2.2 g/dL (3.4-5.0); Albumin/Globulin Ratio 0.5 (0.8-1.8); Bilirubin, Total 1.4 mg/dL (0.1-1.0); Bun/Creatinine Ratio 19.3 (12.0-20.0); Calcium, Blood 8.5 mg/dL (8.5-10.1); Creatinine, Blood 1.09 mg/dL (0.60-1.20); Globulin, Blood 4.2 g/dL (2.2-4.0); Potassium, Blood 3.7 mmol/L (3.5-5.5); Total Protein, Blood 6.4 g/dL (6.4-8.2)
--- NOTE | 2022-09-23 09:15 | NUR ---
PT GIVEN PARTIAL BATH WHILE SITTING AT THE BEDSIDE WITH PHYSICAL THERAPY-TOLERATED WELL. PT ASSISTED OOB TO CHAIR USING WALKER-MODERATE ASSIST.
[2022-09-23 09:16] LABS: BAND PERCENT MAN 3 % (0-8); BASOPHILS PERCENT MAN 0 % (0-2); EOSINOPHILS PERCENT MAN 0 % (0-6); LYMPHOCYTES ABSOLUTE MAN 0.67 K/mm3 (0.84-5.20); LYMPHOCYTES PERCENT MAN 6 % (21-46); METAMYELOCYTE ABSOLUTE MAN 0.22 K/mm3 (0.00-0.00); METAMYELOCYTE PERCENT MAN 2 % (0-0); MONOCYTES ABSOLUTE MAN 0.44 K/mm3 (0.16-1.47); MONOCYTES PERCENT MAN 4 % (4-13); NEUTROPHILS ABSOLUTE MAN 9.83 K/mm3 (1.96-9.15); SEG NEUTROPHILS PERCENT MAN 85 % (41-73); TOTAL CELLS COUNTED 100
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
--- NOTE | 2022-09-23 10:45 | NUR ---
PT ASSISTED BACK TO BED USING WALKER-MODERATE ASSIST. PT REPORTS 9/10 LOW BACK PAIN. MED WITH MORPHINE 2 MG IVP X 1. TEMP 101.1-MED WITH TYLENOL 650 MG PO X 1-SEE EMAR.POSITONED TO COMFORT ON RIGHT SIDE.
--- NOTE | 2022-09-23 11:40 | NUR ---
PT ASSISTED OOB TO CHAIR BY SHARON CHANEY. PT REFUSED LUNCH TRAY. HE HAS WATER AND GRAPE JUICE AT THE BEDSIDE AND HE STATES "I'LL JUST SIP ON THESE TWO." TEMP 100.9.
--- NOTE | 2022-09-23 15:45 | NUR ---
PT REQUESTED "MORPHINE" FOR LOW BACK PAIN, DESPITE HAVING BEEN MEDICATED WITH TORADOL. PT STATES "IT DID NOT HELP AT ALL!" PT MED WITH MORPHINE 2 MG IVP X 1 ALERT AND ORIENTED. PT CONFUSED AT TIMES, BUT RE-ORIENTS EASILY. CIWA 3. REMAINS FEBRILE. SHORTLY AFTER MORPHINE GIVEN, PT STARTED TO COUGH. HE THEN GAGGED AND VOMITED APROXIMATELY 1000 CC OF GREEN BILE. PT MED WITH ZOFRAN 4 MG IVP X 1 FOR NAUSEA. COMPLETE BED BATH AND LINEN CHANGE COMPLETED.
--- NOTE | 2022-09-23 17:46 | NUR ---
PT HAS REMAINED OFF OF THE PRECEDEX DRIP THIS SHIFT. CIWA 3. PT OCCASIONALLY CONFUSED, BUT RE-ORIENTS WITH VERBAL CUES. T MAX 101.1. PT CONTINUES TO REPORT LOW BACK PAIN AND HAS BEEN MEDICATED WITH MORPHINE-SEE EMAR. PT HAD VERY LARGE EMESIS-APROX. 1000 CC. PRIOR TO THAT, PT WAS TOLERATING SIPS OF CLEAR LIQUIDS WITHOUT DIFFICULTY. PT DENIES NAUSEA. NG WITH 500 CC DARK, LISSETTE URINE OUTPUT THIS SHIFT.
--- NOTE | 2022-09-23 18:25 | NUR ---
PT ON HIS HANDS AND KNEES IN THE BED. PT VERY CONFUSED, AGITATED, AND HALLUCINATING. CIWA 26-MED WITH ATIVAN 2 MG IVP AND POSITIONED TO COMFORT ON LEFT SIDE.
--- NOTE | 2022-09-23 18:43 | NUR ---
CIWA 10-PT REPORTS 9/10 LOW BACK PAIN. MED WITH ATIVAN 2 MG IVP X 1 AND MORPHINE 2 MG IVP X 1-SEE EMAR.
--- NOTE | 2022-09-23 20:35 | NUR ---
ASSUMED CARE AT 1900 PATIENT ALERT AND ORIENTED X4, HOWEVER VERY FORGETFUL AND SEEING BUGS ON THE CEILING, CIWA OF 9. PATIENT HAVING SOME NAUSEA, MEDICATED PER EMAR. 02 SATS >93% ON RA. HR SR 80-90s. BP STABLE, PATIENT DENIES CP/PRESSURE. NG PATENT AND DRAINING TO GRAVITY. PATIENT PULLED OUT IV AT START OF SHIFT, LINEN CHANGED DONE AND PATIENT REPOSITIONED. CALL LIGHT IN REACH AND PATIENT ON CAMERA.
--- NOTE | 2022-09-24 00:04 | NUR ---
PATIENT CONFUSED, CIWA >15, CLIMBING OUT OF BED CONSISTENTLY, THINKS HE IS HOME, AND IS HALLUCINATING. MEDICATED WITH ATIVAN SEVERAL TIMES, STARTED ON PO LIBRIUM. PATIENT ALSO HAS HICCUPS, MEDICATED PER DR ORDER, SEE EMAR. PATIENT REMAINS ON CAMERA
--- NOTE | 2022-09-24 00:40 | NUR ---
PATIENT CONTINUES TO BE CONFUSED AND AGITATED CALLED DR AND PRECEDEX RESTARTED AND PATIENT NOW ICU STATUS
--- NOTE | 2022-09-24 05:42 | NUR ---
SHIFT SUMMARY PATIENT IS SEDATED ON PRECEDEX AFTER TRYING ATIVAN AND LIBRIUM. ALSO MEDICATED FOR BACK PAIN WITH MORPHINE. PATIENT REMAINED AGITATED AND PULLING AT THINGS, CLIMBING OUT OF BED AND BECAME INCREASINGLY CONFUSED. ON PRECEDEX PATIENT IS CALM AND COOPERATIVE. 02 SATS 97% ON 2L VIA NC WHILE SLEEPING AND RA WHILE AWAKE. HR SR 70s, BP STABLE. TEMP NG PATENT AND DRAINING LISSETTE URINE. TMAX 102.4, MEDICATED WITH TYLENOL AND ONCE PATIENT SETTLED DOWN TEMP NOW 99.0. PATIENT ABLE TO TOLERATE PO LIQUIDS AND MEDICATION. PATIENT REPOSITIONED SELF THROUGH THE NIGHT. REMAINS ON CAMERA, CALL LIGHT IN REACH.
[2022-09-24 06:58] LABS: BASOPHILS ABSOLUTE AUTO 0.04 K/mm3 (0.00-0.23); BASOPHILS PERCENT AUTO 0 % (0-2); EOSINOPHILS ABSOLUTE AUTO 0.41 K/mm3 (0.00-0.68); EOSINOPHILS PERCENT AUTO 3 % (0-6); Hemoglobin 10.4 g/dL (13.5-17.5); IMMATURE GRAN ABSOLUTE AUTO 0.39 K/mm3 (0.00-0.10); IMMATURE GRAN PERCENT AUTO 3 % (0-1); LYMPHOCYTES PERCENT AUTO 7 % (21-46); MONOCYTES ABSOLUTE AUTO 1.28 K/mm3 (0.16-1.47); MONOCYTES PERCENT AUTO 10 % (4-13); Mean Corpuscular HGB 29.7 pg (26.0-34.0); Mean Corpuscular HGB Conc 32.5 g/dL (31.5-36.5); Mean Corpuscular Volume 91 fL (80-100); Mean Platelet Volume 9.7 fL (9.1-12.4); NEUTROPHILS ABSOLUTE AUTO 9.72 K/mm3 (1.96-9.15); NEUTROPHILS PERCENT AUTO 76 % (41-73); Platelet Count 278 K/mm3 (150-400); RDW Coefficient Variation 14.8 % (11.7-14.2); RDW Standard Deviation 49.8 fL (35.1-46.3); White Blood Cell Count 12.74 K/mm3 (4.00-11.30)
[2022-09-24 07:28] LABS: Bun/Creatinine Ratio 15.7 (12.0-20.0); Calcium, Blood 8.2 mg/dL (8.5-10.1); Creatinine, Blood 1.02 mg/dL (0.60-1.20); Potassium, Blood 3.7 mmol/L (3.5-5.5)
--- NOTE | 2022-09-24 07:30 | NUR ---
ASSUMED CARE PT IS CONFUSED AND UNAWARE OF HIS SURROUNDINGS (ABLE TO ANSWER QUESTIONS APPROPRIATELY INTERMITTENTLY. PT MUMBLING INCOHERENTLY AND TOSSING/TURNING IN BED. NO RESTRAINTS AT THIS TIME OFFGOING NURSE STATED IT WOULD EXTREMELY AGITATE THE PT. PT HAS NOT BEEN ATTEMPTING TO PULL WIRES, ETC., JUST MOVING. SPO2 >92% ON 3LNC; MAP >65. PT HAS NO C/O OF ABDOMINAL TENDERNESS.
--- NOTE | 2022-09-24 10:59 | NUR ---
UPDATE CIWA 21, PRECEDEX AT 1.4. ATTEMPTED TO GIVE PT SOME ORAL CARE AND PT BECAME VERY AGITATED.
--- NOTE | 2022-09-24 11:01 | NUR ---
UPDATE DR LUIS UPDATED W/ CONCERNS THAT ABBY (PALLIATIVE CARE) HAD. DR LUIS STATED THAT HE IS HAVING GI SEE HIM AND THAT HE CHANGED ABX.
--- NOTE | 2022-09-24 12:47 | NUR ---
UPDATE WHEN RT ATTEMPTED TO GIVE PT BREATHING TREATMENT, PT BECAME VERY AGITATED AND ALMOST GOT OUT OF BED. WAS ABLE TO MOVE PT TO CHAIR, GIVE BATH, AND MOVE BACK TO BED W/ NO DIFFICULTY.
--- NOTE | 2022-09-24 17:36 | NUR ---
SHIFT SUMMARY PT IS CONFUSED AND ON 0.7MCG OF PRECEDEX. SPO2 >92% ON 2L NC; MAP >65. PT HAD SEVERAL EPISODES OF AGITATION WHERE HE TRIED TO CLIMB OUT OF BED AND WAS TALKING TO PEOPLE WHO WEREN'T THERE. FOR THE LAST FEW HOURS OF THE SHIFT HIS TEMP HAS BEEN CLIMBING W/ T-MAX AT 101.0. ALSO DURING THE LAST FEW HOURS OF THIS SHIFT, PT'S WORK OF BREATHING INVOLVED ACCESSORY MUSCLES AND WORSENING WHEEZES, BUT HAS SINCE RESOLVED. PT IS STILL TACHYPNEIC, BUT THE WHEEZES HAVE STOPPED AND HIS WOB HAS IMPROVED. NO ABDOMINAL PAIN NOTED TIL TIME OF THIS NOTE, WHERE PT STATED HE HAD MILD PAIN. PAIN MANAGEMENT HAS BEEN FOR HIS BACK.
--- NOTE | 2022-09-24 19:38 | NUR ---
ASSUMED CARE AT 1900 PATIENT IS SEDATED ON PRECEDEX, RESPONDS TO VERBAL STIMULI AND ORIENTED X4, FORGETFUL AND WITH CONFUSION AT TIMES. 02 SATS 97% ON 2L VIA NC, RR 21. LS DIMINISHED, PATIENT DENIES SOB AT THIS TIME. HR ST 70s, BP STABLE, PATIENT DENIES CP PRESSURE, PULSES STRONG. TEMP NG PATENT AND DRAINING TO GRAVITY, TEMP OF 101.4, DAYSHIFT RN GAVE TYLENOL APPROX. 1 HOUR AGO. PATIENT UP IN CHAIR. RIGHT PERIPHERAL IV REMOVED DUE TO SOME SWELLING AND COMPLAINTS OF PAIN WHEN FLUSHED. CALL LIGHT IN REACH AND TAB ALARM ON. SEE SHIFT ASSESSMENT FOR MORE INFORMATION.
--- NOTE | 2022-09-24 22:47 | NUR ---
PATIENT ASKING FOR HIS GLASSES, LOOKED THROUGH ROOM AND UNABLE TO FIND THEM.
--- NOTE | 2022-09-25 05:39 | NUR ---
SHIFT SUMMARY PATIENT REMAINS ON PRECEDEX, TITRATING DOWN THIS AM. PATIENT ABLE TO STATE WHERE HE IS, THE DATE, SELF AND CITY. MORE EASILY REDIRECTABLE BUT HAVING MOMENTS OF CONFUSION STILL. 02 SATS >93% ON RA. LS DIMINISHED, NO EPISODES OF TACHYPNEA OR WHEEZING THIS SHIFT. HR SR-SB 50-70s. BP LABILE THIS AM. NG PATENT AND DRAINING TO GRAVITY, 2200 OUT THIS SHIFT. TEMP NOW 99.0. MEDICATED PRN FOR BACK PAIN. PATIENT UP IN CHAIR FOR HALF THE SHIFT. TOLERATING CLEAR LIQUIDS. CALL LIGHT IN REACH.
[2022-09-25 06:31] LABS: BASOPHILS ABSOLUTE AUTO 0.04 K/mm3 (0.00-0.23); BASOPHILS PERCENT AUTO 0 % (0-2); EOSINOPHILS ABSOLUTE AUTO 0.43 K/mm3 (0.00-0.68); EOSINOPHILS PERCENT AUTO 3 % (0-6); Hematocrit 34.3 % (37.0-53.0); Hemoglobin 11.5 g/dL (13.5-17.5); IMMATURE GRAN ABSOLUTE AUTO 0.37 K/mm3 (0.00-0.10); IMMATURE GRAN PERCENT AUTO 2 % (0-1); LYMPHOCYTES ABSOLUTE AUTO 0.95 K/mm3 (0.84-5.20); LYMPHOCYTES PERCENT AUTO 6 % (21-46); MONOCYTES ABSOLUTE AUTO 1.14 K/mm3 (0.16-1.47); MONOCYTES PERCENT AUTO 7 % (4-13); Mean Corpuscular HGB 30.3 pg (26.0-34.0); Mean Corpuscular HGB Conc 33.5 g/dL (31.5-36.5); Mean Corpuscular Volume 90 fL (80-100); Mean Platelet Volume 9.6 fL (9.1-12.4); NEUTROPHILS ABSOLUTE AUTO 12.48 K/mm3 (1.96-9.15); NEUTROPHILS PERCENT AUTO 81 % (41-73); Platelet Count 280 K/mm3 (150-400); RDW Coefficient Variation 14.8 % (11.7-14.2); RDW Standard Deviation 49.2 fL (35.1-46.3); White Blood Cell Count 15.41 K/mm3 (4.00-11.30)
[2022-09-25 06:36] LABS: Albumin, Blood 2.3 g/dL (3.4-5.0); Albumin/Globulin Ratio 0.5 (0.8-1.8); Bun/Creatinine Ratio 14.3 (12.0-20.0); Calcium, Blood 8.7 mg/dL (8.5-10.1); Creatinine, Blood 0.98 mg/dL (0.60-1.20); Globulin, Blood 4.2 g/dL (2.2-4.0); Potassium, Blood 3.4 mmol/L (3.5-5.5); Total Protein, Blood 6.5 g/dL (6.4-8.2)
--- NOTE | 2022-09-25 07:15 | NUR ---
Assumed care of pt at 0700. Report received from Yolanda AVINA. Pt A&O x 4. Answers questions, follows commands, verbalizes needs. Pleasant and cooperative with care. SpO2 90% or greater with RA. Precedex 0.3 mcg/kg/hr.
--- NOTE | 2022-09-25 07:45 | NUR ---
Dr Murphy at bedside. Provider recommends stopping precedex. Precedex stopped.
--- NOTE | 2022-09-25 13:26 | NUR ---
Call placed to Dr Murphy to notify provider that pt has been continuously febrile despite administering tylenol. Discussed that last blood cx were drawn less than 24 hours ago, provider stated to increase frequency of PO tylenol.
--- NOTE | 2022-09-25 18:15 | NUR ---
SUMMARY Patient is now PCU status. Pt A&O x 4. Answers questions, follows commands, verbalizes needs. Pleasant and cooperative with care. Patient has been compliant with fall risk precautions, utilizing call light appropriately and not attempting to mobilize or ambulate without assistance. Pt was able to work with PT/OT, pt also additionally ambulated to and from shower today, tolerating activity well. SpO2 90% or greater RA. Pt has had fever that has been difficult to break. Several doses of tylenol given. Pt has requested librium for management of anxiety; this seems to work well in combination with therapeutic communication.
--- NOTE | 2022-09-25 21:34 | NUR ---
ASSUMED CARE AT 1900 PATIENT IS ALERT AND ORIENTED X4, ANXIOUS AT TIMES. 02 SATS 97% ON RA. HR SR 80-90s, BP STABLE. DENIES CP/PRESSURE. NG PATENT AND DRAINING TO GRAVITY. UP IN CHAIR. MEDICATED FOR PAIN AND TEMP OF 101.0. CALL LIGHT IN REACH SEE SHIFT ASSESSMENT FOR MORE INFORMATION.
--- NOTE | 2022-09-26 05:03 | NUR ---
SHIFT SUMMARY PATIENT REMAINS ALERT AND ORIENTED X4. ANXIOUS AT TIMES. 02 SATS >93% ON RA. HR SR 80s. BP STABLE. NG DRAINING LISSETTE URINE. TMAX 101.0, MEDICATED WITH TYLENOL. MILD ABD TENDERNESS. MEDICATED FOR BACK PAIN. THORAZINE ORDERED FOR HICCUPS THAT PATIENT HAS HAD THE ENTIRE SHIFT. PATIENT IN CHAIR AT START OF SHIFT THEN MOVED TO BED TO SEE IF BACK PAIN IMPROVED, MOVED BACK TO CHAIR THIS AM AND HAS NOT SLEPT TONIGHT. CALL LIGHT IN REACH.
[2022-09-26 06:04] LABS: BASOPHILS ABSOLUTE AUTO 0.05 K/mm3 (0.00-0.23); BASOPHILS PERCENT AUTO 0 % (0-2); EOSINOPHILS ABSOLUTE AUTO 0.28 K/mm3 (0.00-0.68); EOSINOPHILS PERCENT AUTO 2 % (0-6); Hematocrit 33.5 % (37.0-53.0); Hemoglobin 11.4 g/dL (13.5-17.5); IMMATURE GRAN PERCENT AUTO 3 % (0-1); LYMPHOCYTES ABSOLUTE AUTO 1.04 K/mm3 (0.84-5.20); LYMPHOCYTES PERCENT AUTO 7 % (21-46); MONOCYTES ABSOLUTE AUTO 1.15 K/mm3 (0.16-1.47); MONOCYTES PERCENT AUTO 7 % (4-13); Mean Corpuscular HGB 29.8 pg (26.0-34.0); Mean Corpuscular Volume 88 fL (80-100); Mean Platelet Volume 9.5 fL (9.1-12.4); NEUTROPHILS ABSOLUTE AUTO 12.87 K/mm3 (1.96-9.15); NEUTROPHILS PERCENT AUTO 82 % (41-73); Platelet Count 341 K/mm3 (150-400); RDW Coefficient Variation 14.6 % (11.7-14.2); RDW Standard Deviation 47.4 fL (35.1-46.3); Red Blood Cell Count 3.82 M/mm3 (4.30-5.90); White Blood Cell Count 15.79 K/mm3 (4.00-11.30)
[2022-09-26 06:18] LABS: Bun/Creatinine Ratio 13.2 (12.0-20.0); Calcium, Blood 8.7 mg/dL (8.5-10.1); Creatinine, Blood 0.84 mg/dL (0.60-1.20); Potassium, Blood 3.4 mmol/L (3.5-5.5)
--- NOTE | 2022-09-26 07:32 | NUR ---
Assumed care of pt at 0715 Pt resting in bed, has ongoing hiccups, is AAOx4. Did not sleep last night and is requesting "any drugs" to make him sleep. SR, BP WNL, RA, tolerating PO clear liquids, casillas draining moisés urine, skin intact, PIV SL. Potassium is 3.4, PO replacement ordered. RN to continue to follow.
[2022-09-26 18:04] LABS: Bun/Creatinine Ratio 11.6 (12.0-20.0); Calcium, Blood 9.2 mg/dL (8.5-10.1); Creatinine, Blood 0.77 mg/dL (0.60-1.20); Magnesium, Blood 2.1 mg/dL (1.6-2.4); Phosphorus, Blood 2.7 mg/dL (2.5-4.9); Potassium, Blood 3.6 mmol/L (3.5-5.5)
--- NOTE | 2022-09-26 18:39 | NUR ---
END OF SHIFT SUMMARY PT HAD STATUS CHANGE THIS AM TO MEDICAL WITH TELE. NEURO: A/OX4, CALLS APPROPRIATELY FOR HELP. CARDIAC: SINUS RHYTHM TO SINUS TACH, BIPHASIC TWAVES NOTED AT 1400 RHYTHM CHECK, MD NOTIFIED, STAT BMP, MAG, PHOS ORDERED. K 3.6. NOTIFIED. NO NEW ORDERS AT THIS TIME. RESP: ROOM AIR, O2 SAT >95%. LUNGS WITH EXPIRATORY RHONCHI. OCCAS NON-PRODUCTIVE COUGH. ENCOURAGED PULMONARY HYGEINE. GI: ADVANCED DIET TO LOW FAT. PT ATE 50% DINNER, TOLERATED WELL. HAS HAD HICCUPS INTERMITTENTLY. TREATING WITH THORAZINE THIS SHIFT X2 WITH SOME RELIEF. ALSO ATTEMPTED VALSALVA WHICH SEEMED TO STOP HICCUPS FOR ABOUT 4O MIN. NO NAUSEA OR VOMITING. BS HYPOACTIVE. ABD SLIGHTLY TENDER. : NG TO GRAVITY DRAINING CLEAR YELLOW URINE. ORDER TO D/C NG RECIEVED. PT STILL UP IN CHAIR, WILL ENDORSE TO NOC SHIFT. NURSE NOTIFY ORDER PLACED. 1100ML OUT. SKIN: INTACT WITH MILD RASH TO BACK. PER PT/FAMILY, PT IS SENSITIVE TO SOAPS. CREAM APPLIED, MONITOR. TMAX 100.8. TYLENOL PO GIVEN WITH GOOD EFFECT. WALKED 100 FT WITH PT ASSIST. OT WORKED WITH PT WELL. IMPROVING WITH ADL'S, STILL UNSTEADY ON HIS FEET AND IMPULSIVE AT TIMES. WILL BENEFIT FROM CONTINUED PT/OT. PLAN FOR D/C TO SNF DELAYED DUE TO ACCEPTING FACILITY HOLDING ADMITS R/T FLU OUTBREAK. CARE MANAGEMENT WORKING WITH LOCAL SNF ([facility]) ON POTENTIAL ADMIT TOMORROW 09/26. FACILITY HAS NOT ACCEPTED AT THIS TIME. DISCUSSED WITH FAMILY, BACKUP PLAN FOR HOME WITH HOME HEALTH VS. OUTPT PT/OT AND FAMILY SUPPORT IF SNF NOT AN OPTION. IF SNF ACCEPTS PT TOMORROW, WILL NEED COVID TEST IN AM.
--- NOTE | 2022-09-26 20:03 | NUR ---
TOOK OVER CARE OF PT AT 1905. PT RESTING ON RA.
--- NOTE | 2022-09-27 02:52 | NUR ---
SHIFT SUMMARY NEURO: A/O X4, PT HAS SOME GENERALIZED WEAKNESS LUNGS: WNL CARDIAC: POTASSIUM REPLACED. TACHY TO 150'S WHILE STANDING TO URINATE. GI: WNL : NG REMOVED AROUND 199909/26/22. PT HAS VOIDED TWICE SINCE
[2022-09-27 05:40] LABS: BASOPHILS ABSOLUTE AUTO 0.04 K/mm3 (0.00-0.23); BASOPHILS PERCENT AUTO 0 % (0-2); EOSINOPHILS ABSOLUTE AUTO 0.34 K/mm3 (0.00-0.68); EOSINOPHILS PERCENT AUTO 3 % (0-6); Hemoglobin 10.8 g/dL (13.5-17.5); IMMATURE GRAN ABSOLUTE AUTO 0.29 K/mm3 (0.00-0.10); IMMATURE GRAN PERCENT AUTO 2 % (0-1); LYMPHOCYTES ABSOLUTE AUTO 0.92 K/mm3 (0.84-5.20); LYMPHOCYTES PERCENT AUTO 7 % (21-46); MONOCYTES ABSOLUTE AUTO 0.76 K/mm3 (0.16-1.47); MONOCYTES PERCENT AUTO 6 % (4-13); Mean Corpuscular HGB 30.1 pg (26.0-34.0); Mean Corpuscular HGB Conc 33.8 g/dL (31.5-36.5); Mean Corpuscular Volume 89 fL (80-100); Mean Platelet Volume 9.4 fL (9.1-12.4); NEUTROPHILS ABSOLUTE AUTO 10.64 K/mm3 (1.96-9.15); NEUTROPHILS PERCENT AUTO 82 % (41-73); Platelet Count 345 K/mm3 (150-400); RDW Coefficient Variation 14.6 % (11.7-14.2); Red Blood Cell Count 3.59 M/mm3 (4.30-5.90); White Blood Cell Count 12.99 K/mm3 (4.00-11.30)
[2022-09-27 05:59] LABS: Albumin, Blood 2.5 g/dL (3.4-5.0); Albumin/Globulin Ratio 0.6 (0.8-1.8); Bilirubin, Total 0.9 mg/dL (0.1-1.0); Bun/Creatinine Ratio 10.8 (12.0-20.0); Calcium, Blood 8.8 mg/dL (8.5-10.1); Creatinine, Blood 0.83 mg/dL (0.60-1.20); Potassium, Blood 3.6 mmol/L (3.5-5.5); Total Protein, Blood 6.5 g/dL (6.4-8.2)
[2022-09-27] MEDS ORDERED: LISI20 PO (12:19)
[2022-09-27] MEDS ORDERED: HYDR1TAB94 PO (12:21)
[2022-09-27] MEDS ORDERED: PANT20 PO (12:22)
[2022-09-27] MEDS ORDERED: B-1100 M1 PO (12:22)
[2022-09-27] MEDS ORDERED: CEFP200 PO (12:23)
[2022-09-27] MEDS ORDERED: FOLI1 PO (12:24)
[2022-09-27 12:28] LABS: Influenza A, PCR NEGATIVE (NEGATIVE); Influenza B, PCR NEGATIVE (NEGATIVE); Resp Syncytial Virus, PCR NEGATIVE (NEGATIVE); SARS-Cov-2 (COVID-19) PCR, MMC NEGATIVE (NEGATIVE)
--- NOTE | 2022-09-27 14:54 | NUR ---
Pt d/c to SNF at 1350 Pt accepted to [facility] for PT/OT rehab. Report called to Zofia at 1215, all questions answered. CM notified of facility d/c. charge nurse (Delia) to transport to SNF, ok per facility. Pt is a/o x4, sinus tach 98-110, increased hr with activity. SBP 185 this am, increased dose of Lisinopril ordered by MD. On room air with O2 sat 99%. Eating well, no BM x5 days although pt just started with solid diet yesterday afternoon. Skin intact, rash on back due to sensitivity to soaps per pt and family. Powerglide D/C'd, catheter intact, pt tolerated well. D/C packet sent with pt including written Rx for pain medication and all d/c instructions and med orders. RN Name and ICU phone number provided to facility, encouraged to call with any questions.
== END 2022-09-27 13:40 | DRG 439 ==
LOC: ER 20:10 → ERHOLD 09-17 01:04 → PCU 09-17 01:04 → ICUE 09-17 01:04 → PCU 09-17 01:46 → ICUE 09-18 17:51
PROVIDERS: Emergency Medicine; Family Medicine; Internal Medicine; Student in an Organized Health Care Education/Training Program; ADMIT Family Medicine
DX: K85.20 Alcohol induced acute pancreatitis without necrosis or infection (principal); F10.239 Alcohol dependence with withdrawal, unspecified; N17.9 Acute kidney failure, unspecified; N39.0 Urinary tract infection, site not specified; E78.5 Hyperlipidemia, unspecified; I12.9 Hypertensive chronic kidney disease with stage 1 through stage 4 chronic kidney disease, or unspecified chronic kidney disease; K29.80 Duodenitis without bleeding; R06.6 Hiccough; F41.9 Anxiety disorder, unspecified; Z66 Do not resuscitate; E66.9 Obesity, unspecified; K64.9 Unspecified hemorrhoids; N43.3 Hydrocele, unspecified; E87.70 Fluid overload, unspecified; G47.00 Insomnia, unspecified; F12.10 Cannabis abuse, uncomplicated; N52.9 Male erectile dysfunction, unspecified; N18.30 Chronic kidney disease, stage 3 unspecified; Z20.822 Contact with and (suspected) exposure to COVID-19; Z68.29 Body mass index [BMI] 29.0-29.9, adult; Z88.0 Allergy status to penicillin; Z98.890 Other specified postprocedural states; Z85.46 Personal history of malignant neoplasm of prostate; Z88.8 Allergy status to other drugs, medicaments and biological substances; Z79.899 Other long term (current) drug therapy; Z79.811 Long term (current) use of aromatase inhibitors; Z71.41 Alcohol abuse counseling and surveillance of alcoholic
CPT/HCPCS: 0202U; 0241U; 36415; 51702; 71045; 71046; 74177; 80048; 80053; 80061; 81001; 83605; 83690; 83735; 84100; 84145; 84484; 85025; 87040; 87086; 93005; 93010; 94640; 94664; 94760; 94762; 96361; 96374-59; 96375; 96376; 97110; 97112; 97116; 97162; 97166; 97530; 97535; 99285-25; A9270; C1751; C9113; J0692; J0696; J1170; J1650; J1885; J1940; J2060; J2270; J2405; J2550; J3010; J3411; J3475; J3480; J7030; J7050; J7060; J7120; Q9967

== ENCOUNTER → 2024-04-17 | Outpatient (CLI) | payer MEDICARE, OTHER ==
[~2024-04-17] MED LIST changes: +B-1100 M1 PO; +CEFP200 PO; +FENOFIBRIC ACI135 MG PO; +FOLI1 PO; +HYDR1TAB94 PO; +LISI20 PO; +PANT20 PO
== END ==
LOC: LAB 12:45 → LAB SHORT 12:45
DX: R30.0 Dysuria (principal)
CPT/HCPCS: 87086